=== PATIENT | male | born 1950 | race Two or more races ===

== ENCOUNTER 2023-07-14 05:30 | Day surgery (SDC) | payer OTHER ==
[2023-07-09 11:50] LABS: HEMATOCRIT 45.1 % (39.0-48.0); HEMOGLOBIN 14.9 g/dL (13-16.00); MEAN CELL VOLUME 83.9 fL (80.0-100.00); MEAN CORPUSCULAR HEMOGLOBIN 27.7 pg (27.00-32.0); PLATELET COUNT 191 K/uL (150-450); RED BLOOD COUNT 5.38 M/uL (4.00-6.00); RED CELL DISTRIBUTION WIDTH 14.3 % (11.5-14.5)
[~2023-07-14] VITALS: Ht 188 cm; Wt 113.4 kg
[~2023-07-14 05:30] MED LIST: COZAAR100 MG PO; CYMBALTA20 MG PO; PRAVASTATIN SOD20 MG PO; TOPROL XL25 M1 PO
== END 2023-07-14 15:30 | disposition home or self-care (01) ==
LOC: CIR.AMB 05:30
PROVIDERS: ATTEND Orthopaedic Surgery Hand Surgery
DX: M72.0 Palmar fascial fibromatosis [Dupuytren] (principal); Z20.822 Contact with and (suspected) exposure to COVID-19; E11.9 Type 2 diabetes mellitus without complications; E78.00 Pure hypercholesterolemia, unspecified; E78.3 Hyperchylomicronemia; I10 Essential (primary) hypertension